=== PATIENT | male | born 1960 ===

== ENCOUNTER 2018-03-30 22:18 | Emergency (ER) | payer BC ==
--- NOTE | 2018-03-31 00:15 | ED PDOC ---
Lower Extremity Pain/Injury Time Seen by Provider: 03/30/18 23:12 Chief Complaint (Nursing): Lower Extremity Problem/Injury Chief Complaint (Provider): right knee pain History Per: Patient History/Exam Limitations: no limitations Onset/Duration Of Symptoms: Hrs (5) Current Symptoms Are (Timing): Still Present Additional Complaint(s): 57 y/o male history of gout to right knee presents with pain to right knee x 5 hours. Patient states pain similar to previous flare-ups, took two colchicine tablets at 19:30 and then another two tablets one hour later along with a Tr amadol with little improvement. Patient states last time he got an injection of a steroid and anti-inflammatory which took the pain away. Patient denies fever, numbness/weakness right lower extremity, limitation of movement, trauma to leg. Past Medical History Reviewed: Historical Data, Nursing Documentation, Vital Signs Vital Signs: Last Vital Signs Temp 97.3 F L 03/30/18 22:22 Pulse 79 03/30/18 22:22 Resp 16 03/30/18 22:22 BP 176/85 H 03/30/18 22:22 Pulse Ox 97 03/30/18 22:22 - Medical History PMH: Arthritis (gout), HTN - Surgical History Surgical History: No Surg Hx - Family History Family History: States: No Known Family Hx - Living Arrangements Living Arrangements: With Family - Home Medications Home Medications: Ambulatory Orders Medication Instructions Recorded Indomethacin [Indocin] 50 mg PO ASDIR #18 cap 03/31/18 - Allergies Allergies/Adverse Reactions: Allergies Allergy/AdvReac Type Severity Reaction Status Date / Time No Known Allergies Allergy Verified 03/30/18 22:24 Review of Systems ROS Statement: Except As Marked, All Systems Reviewed And Found Negative Musculoskeletal: Positive for: Leg Pain (right knee) Physical Exam - Reviewed Nursing Documentation Reviewed: Yes Vital Signs Reviewed: Yes - Physical Exam Appears: Positive for: Well, Non-toxic, No Acute Distress Head Exam: Positive for: ATRAUMATIC, NORMAL INSPECTION, NORMOCEPHALIC Pulses-Dorsalis Pedis (L): 2+ Pulses-Dorsalis Pedis (R): 2+ Pulses-Post. Tibialis (L): 2+ Pulses-Post. Tibialis (R): 2+ Extremity: Positive for: Normal ROM, Tenderness (medial aspect right knee without erythema, temp change, edema. FROM), Capillary Refill (<3 sec b/l LE). Negative for: Pedal Edema, Calf Tenderness, Deformity Neurologic/Psych: Positive for: Alert, Oriented (x3) - ECG O2 Sat by Pulse Oximetry: 97 - Progress ED Course And Treament: -IV toradol -IV decadron 1:00 Patient ambulating without pain/difficulty; states he is feeling better and ready for discharge Patient educated on findings, discharged with rx Indomethacin Advised follow up PMD within 2-3 days Return precautions given Disposition - Clinical Impression Clinical Impression: Gout attack - Patient ED Disposition Is Patient to be Admitted: No Counseled Patient/Family Regarding: Diagnosis, Need For Followup, Rx Given - Disposition Disposition: Routine/Home Disposition Time: 01:02 Condition: IMPROVED Prescriptions: Indomethacin [Indocin] 50 mg PO ASDIR #18 cap Instructions: Gout, Lifestyle Changes to Manage Gout Forms: [facility] (Indonesian)
[2018-03-31 01:24] VITALS: O2SAT 97
[2018-03-31 01:45] VITALS: BP 147/100; PULSE 73; RESP 18; TEMP 98.4
== END 2018-03-31 01:20 | disposition home or self-care (01) ==
LOC: H.ER 22:18
DX: M10.9 Gout, unspecified (principal); I10 Essential (primary) hypertension
CPT/HCPCS: 96374; 96375; 99284; J1100; J1885